=== PATIENT | female | born 1950 | race African-American/Black ===

== ENCOUNTER 2018-07-12 16:28 | Emergency (ER) | payer OTHER ==
[~2018-07-12] VITALS: Ht 165.1 cm; Wt 86.2 kg
[2018-07-12 17:26] LABS: ABSOLUTE EOSINOPHILS 0.2 thou/uL (0.0-0.7); ABSOLUTE LYMPHOCYTES 1.5 thou/uL (0.8-5.3); ABSOLUTE MONOCYTES 0.3 thou/uL (0.0-1.2); BASOPHILS 0.4 %; EOSINOPHILS 5.6 %; HEMATOCRIT 29.5 % (37.0-47.0); HEMOGLOBIN 9.9 gm/dL (12.0-15.0); LYMPHOCYTES 36.4 %; MCH 33.9 pg (26.0-34.0); MCHC 33.7 g/dL (28.0-37.0); MCV 100.7 fL (80.0-100.0); MONOCYTES 8.5 %; MPV 7.7 fl. (7.2-11.1); NUCLEATED RBCS 0 /100WBC; PLATELET COUNT* 259 thou/uL (150-400); POLYS 49.1 %; RBC 2.93 mil/uL (4.20-5.00); RDW-CV 14.2 % (10.5-14.5); WBC 4.1 thou/uL (4.0-11.0)
[2018-07-12 17:39] LABS: ALBUMIN 3.3 g/dL (3.4-5.0); ALKALINE PHOSPHATASE 80 U/L (46-116); ANION GAP 4 mmol/L (7-16); BUN 22 mg/dL (7-18); CALCIUM 8.8 mg/dL (8.5-10.1); CHLORIDE 105 mmol/L (98-107); CO2 29 mmol/L (21-32); CREATININE 1.1 mg/dL (0.6-1.3); GLUCOSE 86 mg/dL (70-99); LIPASE 114 U/L (73-393); NT-PRO BRAIN NAT PEPTIDE 67 pg/mL (<300); POTASSIUM 3.3 mmol/L (3.5-5.1); SGOT 19 U/L (15-37); SGPT 21 U/L (30-65); SODIUM 138 mmol/L (136-145); TOTAL BILIRUBIN 0.3 mg/dL (<0.1-1.0); TOTAL PROTEIN 10.8 g/dL (6.4-8.2); TROPONIN-I LEVEL <0.06 ng/mL (<0.06)
[2018-07-12] MEDS ORDERED: CHOLESTEROL (18:31)
[2018-07-12 18:56] LABS: URINE BILIRUBIN NEGATIVE (Negative); URINE BLOOD TRACE (Negative); URINE CLARITY CLEAR; URINE COLOR YELLOW; URINE GLUCOSE-RANDOM NEGATIVE (Negative); URINE KETONES NEGATIVE (Negative); URINE LEUKOCYTES-REFLEX NEGATIVE (Negative); URINE NITRITE-REFLEX NEGATIVE (Negative); URINE PROTEIN NEGATIVE (Negative); URINE SPECIFIC GRAVITY 1.015 (1.005-1.030); URINE UROBILINOGEN 0.2 E.U./dl (0.2-1.0)
[2018-07-12 22:05] VITALS: BP 181/96
--- NOTE | 2018-07-13 13:41 | EKG ---
[place] [address] ELECTROCARDIOGRAM REPORT Name: ROBERTA COTA I Room: [facility]#: [id number] Admission: 07/12/18 Attend Phys: Discharge: 07/12/18 Date of : 46 Report #: [id number] THIS REPORT FOR: //name// [facility] ED Test Date: 2018-07-12 Test Time: 17:14:52 Pat Name: ROBERTA COTA Department: Room: Gender: F Inspector Floor: : 1950 Requested By: Josselin Mcclure Order Number: [id number] MD: Roel Jose Measurements Intervals [place] Rate: 74 P: 19 W[place]: 182 QRS: 17 QRSD: 109 T: -28 QT: 421 QTc: 467 Interpretive Statements Sinus rhythm Ventricular premature complex Abnormal R-wave progression, early transition Borderline T abnormalities, inferior leads Borderline ST elevation, lateral leads No previous ECG available for comparison Electronically Signed On 07-13-2018 13:41:36 CDT by Roel Jose [email or web address] <ELECTRONICALLY SIGNED> By: Roel Jose MD, [facility] 07/13/18 134 13 13 Roel Jose MD, FAC /EPI
== END 2018-07-12 22:03 | disposition short-term general hospital (02) ==
LOC: M.ERS 16:28
PROVIDERS: Nurse Practitioner Family
DX: S32.000A Wedge compression fracture of unspecified lumbar vertebra, initial encounter for closed fracture (principal); S22.000A Wedge compression fracture of unspecified thoracic vertebra, initial encounter for closed fracture; D32.9 Benign neoplasm of meninges, unspecified; J44.9 Chronic obstructive pulmonary disease, unspecified; Z87.442 Personal history of urinary calculi; X58.XXXA Exposure to other specified factors, initial encounter; Y92.89 Other specified places as the place of occurrence of the external cause; Y93.89 Activity, other specified; Y99.8 Other external cause status